=== PATIENT | female | born 1985 | race Caucasian/White ===

== ENCOUNTER → 2018-02-10 10:07 | Outpatient (CLI) | payer OTHER ==
[~2018-02-10 10:07] MED LIST: PERCOCET 5/321 UDTAB PO; PRENATAL1 TAB PO
== END | disposition home or self-care (01) ==
LOC: LAB 10:07
DX: Z11.3 Encounter for screening for infections with a predominantly sexual mode of transmission (principal); R42 Dizziness and giddiness; E78.5 Hyperlipidemia, unspecified; R51 Headache

== ENCOUNTER 2019-03-07 13:43 | Emergency (ER) | payer OTHER ==
[~2019-03-07] VITALS: Ht 170.2 cm; Wt 63.5 kg
== END 2019-03-08 11:42 | disposition home or self-care (01) ==
LOC: ER 13:43
DX: N83.292 Other ovarian cyst, left side (principal); R10.2 Pelvic and perineal pain

== ENCOUNTER → 2019-08-09 08:03 | Outpatient (CLI) | payer OTHER | END | disposition home or self-care (01) | LOC: LAB 08:03 | DX: E11.9 Type 2 diabetes mellitus without complications (principal); E03.8 Other specified hypothyroidism ==

== ENCOUNTER 2019-08-25 08:49 | Emergency (ER) | payer OTHER ==
[~2019-08-25] VITALS: Ht 170.2 cm; Wt 68.0 kg
[2019-08-25] MEDS ORDERED: ACULAR5 ML OP (10:50)
== END 2019-08-25 11:03 | disposition home or self-care (01) ==
LOC: ER 08:49
DX: S05.01XA Injury of conjunctiva and corneal abrasion without foreign body, right eye, initial encounter (principal); W50.4XXA Accidental scratch by another person, initial encounter; Y93.89 Activity, other specified; Y92.89 Other specified places as the place of occurrence of the external cause; Y99.8 Other external cause status

== ENCOUNTER 2019-10-18 14:31 | Outpatient (CLI) | payer OTHER ==
[~2019-10-18 14:31] MED LIST changes: +ACULAR5 ML OP
== END 2019-10-18 14:39 | disposition home or self-care (01) ==
LOC: LAB 14:31
DX: Z11.3 Encounter for screening for infections with a predominantly sexual mode of transmission (principal)

== ENCOUNTER 2020-03-04 07:32 | Outpatient (CLI) | payer OTHER | END 2020-03-04 13:57 | disposition home or self-care (01) | LOC: LAB 07:32 | DX: Z20.818 Contact with and (suspected) exposure to other bacterial communicable diseases (principal) ==

== ENCOUNTER 2020-07-02 15:06 | Outpatient (CLI) | payer OTHER | END 2020-07-02 15:34 | disposition home or self-care (01) | LOC: LAB 15:06 | PROVIDERS: ATTEND Surgery | DX: Z20.828 Contact with and (suspected) exposure to other viral communicable diseases (principal) ==

== ENCOUNTER → 2020-07-17 | Outpatient (CLI) | payer OTHER | END | disposition home or self-care (01) | LOC: PPH VACUNA 09:00 | DX: Z23 Encounter for immunization (principal) ==

== ENCOUNTER 2020-10-01 08:55 | Outpatient (CLI) | payer OTHER | END 2020-10-01 09:00 | disposition home or self-care (01) | LOC: LAB 08:55 | PROVIDERS: ATTEND Colon & Rectal Surgery | DX: D53.8 Other specified nutritional anemias (principal); K59.09 Other constipation; R50.9 Fever, unspecified; N39.0 Urinary tract infection, site not specified; Z20.828 Contact with and (suspected) exposure to other viral communicable diseases ==

== ENCOUNTER 2021-01-13 15:43 | Outpatient (CLI) | payer OTHER | END 2021-01-13 15:47 | disposition home or self-care (01) | LOC: MAMO-SONO 15:43 | PROVIDERS: ATTEND Specialist | DX: Z12.31 Encounter for screening mammogram for malignant neoplasm of breast (principal); N63.0 Unspecified lump in unspecified breast ==

== ENCOUNTER → 2021-05-29 | Outpatient (CLI) | payer OTHER | END | disposition home or self-care (01) | LOC: LAB 08:09 | PROVIDERS: ATTEND Emergency Medicine Pediatric Emergency Medicine | DX: Z03.818 Encounter for observation for suspected exposure to other biological agents ruled out (principal) ==

== ENCOUNTER 2021-07-27 08:00 | Outpatient (CLI) | payer OTHER | END 2021-07-27 08:30 | disposition home or self-care (01) | LOC: PPH VACUNA 08:00 | PROVIDERS: ATTEND Emergency Medicine Pediatric Emergency Medicine | DX: Z23 Encounter for immunization (principal) ==

== ENCOUNTER 2021-08-04 08:00 | Outpatient (CLI) | payer OTHER | END 2021-08-04 08:30 | disposition home or self-care (01) | LOC: PPH VACUNA 08:00 | PROVIDERS: ATTEND Emergency Medicine Pediatric Emergency Medicine | DX: Z23 Encounter for immunization (principal) ==

== ENCOUNTER 2022-03-03 13:43 | Outpatient (CLI) | payer OTHER | END 2022-03-03 13:51 | disposition home or self-care (01) | LOC: RAD 13:43 | PROVIDERS: ATTEND Colon & Rectal Surgery | DX: R05.9 Cough, unspecified (principal); U07.1 COVID-19 ==

== ENCOUNTER 2022-11-16 06:00 | Day surgery (SDC) | payer OTHER | END 2022-11-16 09:34 | disposition home or self-care (01) | LOC: AMB-ENDOS 06:00 | PROVIDERS: ATTEND Colon & Rectal Surgery | DX: K63.5 Polyp of colon (principal); K64.8 Other hemorrhoids; Z20.822 Contact with and (suspected) exposure to COVID-19 ==

== ENCOUNTER 2024-07-17 12:58 | Outpatient (CLI) | payer OTHER | END 2024-07-17 14:17 | disposition home or self-care (01) | LOC: LAB 12:58 | PROVIDERS: ATTEND Preventive Medicine Occupational Medicine | DX: B19.10 Unspecified viral hepatitis B without hepatic coma (principal) ==

== ENCOUNTER 2024-07-24 09:18 | Outpatient (CLI) | payer OTHER | END 2024-07-24 11:01 | disposition home or self-care (01) | LOC: MAMO-SONO 09:18 | PROVIDERS: ATTEND Obstetrics & Gynecology Gynecologic Oncology | DX: Z12.31 Encounter for screening mammogram for malignant neoplasm of breast (principal) ==